=== PATIENT | female | born 1960 | race Caucasian/White ===

== ENCOUNTER 2019-06-30 07:29 | Day surgery (SDC) | payer MEDICARE, BC ==
--- NOTE | 2019-06-29 09:47 | HP ---
AMENDED REPORT NOW INCLUDES DESIGNATED COSIGNER - ESIGNED BEFORE ADJUSTMENTS PREOPERATIVE HISTORY AND PHYSICAL: DATE OF SURGERY/ADMISSION: 06/30/19 DATE OF OFFICE VISIT/ENCOUNTER: 06/25/19 ATTENDING SURGEON: Hanna Renee MD * (DICTATED BY NOHEMI KRISHNAN) PROCEDURE: Open reduction internal fixation, left wrist. HISTORY OF PRESENT ILLNESS: This is a 59-year-old female who was outside taking a walk on, I believe, 06/22/19, when she slipped and fell. She was on the sidewalk at the time and fell onto her left arm awkwardly. She saw her primary care physician who took x-rays. He placed her in a splint and referred her to Dr. Renee for further evaluation and treatment considerations. She complains of pain primarily at the wrist. She denies any numbness or tingling and does have some pain at the elbow as well. She has a history of a nondisplaced distal radius fracture on the same arm a few years ago, but fully healed from that. She denies any other injury from this recent fall. X-rays have showed a displaced fracture of the left distal radius. Dr. Renee is recommending surgical intervention for best outcome and the patient has consented to proceed. PAST MEDICAL HISTORY: 1. Borderline personality disorder. 2. Depression. 3. Hypothyroidism. 4. Some hearing loss since childhood. PAST SURGICAL HISTORY: 1. Uterine fibroids. 2. Oral surgery. CURRENT MEDICATIONS: 1. Aspirin 81 mg daily. 2. Levothyroxine sodium 175 mcg daily. 3. Prozac. 4. Wellbutrin SR. ALLERGIES: No known drug allergies. FAMILY HISTORY: Diabetes, heart disease, hypertension, stroke. SOCIAL HISTORY: The patient works at the [employer] in [place]. She denies tobacco use, recreational drug use, and does not drink alcohol. REVIEW OF SYSTEMS: Negative for general, cephalic, cardiovascular, respiratory , GI, , other musculoskeletal, integumentary, endocrine, neurologic, and hematologic symptoms. Infectious Disease: Negative for MRSA, hepatitis C, HIV. PHYSICAL EXAMINATION GENERAL: Well-developed, well-nourished 59-year-old female in no acute distress. VITAL SIGNS: Height 5 feet 4 inches, weight 160 pounds. Pulse rate 75, blood pressure 100/68. HEENT: Normocephalic, atraumatic. Pupils are equal, round, and reactive to light and accommodation. Extraocular movements are intact. Throat is clear. NECK: Supple. No palpable lymph nodes. PULMONARY: Lungs are clear to auscultation bilaterally. No wheezes, rales, or rhonchi. CARDIOVASCULAR: Regular rate and rhythm. S1, S2. No murmurs, rubs, or gallop. No edema. ABDOMEN: Positive bowel sounds, soft, nontender. MUSCULOSKELETAL: On exam of her left wrist, there is an obvious deformity. She has lot of swelling and ecchymosis in her hand. She can move her fingers, but cannot make a full fist. Elbow motion is little bit painful. She has tenderness at the distal radius. Skin is intact. Neurovascular function is intact. NEUROLOGIC: Alert and oriented x3. Cranial nerves II through XII are intact. Sensation is intact to light touch. IMAGING STUDIES: X-rays, AP, lateral, and oblique, of the left wrist show a displaced fracture of her distal radius, extra-articular. IMPRESSION: As above. PLAN: The patient is scheduled to undergo an open reduction internal fixation, left wrist, with Dr. Renee on 06/30/19. She will return to the office 10 days postop for followup and suture removal. A prescription for Sidman was e-scribed to the patient's pharmacy for postoperative pain management. NOHEMI KRISHNAN [id number]/ADOLFO #: [id number] [place]
[~2019-06-30 07:29] MED LIST: Buffered Lidocaine 1% SYRIN* 1 ML/SYRINGE INTRADERM ONE; Dexamethasone IV* 4 MG/ML 1 ML (4 MG) IV SLOW PU ONE; Famotidine IV* 10 MG/ML 2 ML (20 mg) IV ONE; Lactated Ringers 1000 ML Bag* 1,000 ML IV SCH
[2019-06-30] MEDS ORDERED: ceFAZolin 2 GM PREMIX in ORs 2 GM/50 ML BAG ONE (07:47)
[2019-06-30] MEDS ORDERED: Dexamethasone IV* 4 MG/ML 1 ML (4 MG) ONE (07:48)
[2019-06-30] MEDS ORDERED: Famotidine IV* 10 MG/ML 2 ML (20 mg) ONE (07:48)
[2019-06-30] MEDS ORDERED: Buffered Lidocaine 1% SYRIN* 1 ML/SYRINGE INTRADERM ONE (08:15)
[2019-06-30] MEDS ORDERED: Bupivacaine 0.5% SDV PF* 30ML VIAL ONE (09:03)
[2019-06-30] MEDS ORDERED: fentaNYL* 50 MCG/ML 5 ML VIAL (250 MCG VIAL) ONE (09:06)
[2019-06-30] MEDS ORDERED: Atracurium* 10 MG/ML 10 ML VIAL ONE (09:06)
[2019-06-30] MEDS ORDERED: Midazolam* 1 MG/ML 2 ML VIAL (2 MG) ONE (09:06)
[2019-06-30] MEDS ORDERED: Ondansetron INJ* 2 MG/ML VIAL IV PRN (09:46)
[2019-06-30] MEDS ORDERED: HYDROmorphone INJ1* 1 MG/ML SYRINGE IV PRN (09:46)
[2019-06-30] MEDS ORDERED: DiMENhydriNATE IV* 50 MG/ML VIAL IV PUSH PRN (09:46)
[2019-06-30] MEDS ORDERED: Naloxone* 0.4 MG/ML 1 ML VIAL IV PRN (09:46)
[2019-06-30] MEDS ORDERED: fentaNYL* 50 MCG/ML 2 ML VIAL (100 MCG VIAL) IV PRN (09:46)
[2019-06-30] MEDS ORDERED: oxyCODONE/Acetamin 5/325 MG* TAB PO PRN (09:46)
[2019-06-30] MEDS ORDERED: Neostigmine Methylsulfate* 3 MG/3 ML SYRINGE ONE (09:56)
[2019-06-30] MEDS ORDERED: Glycopyrrolate IV* 0.2 MG/ML 1 ML VIAL ONE (09:56)
[2019-06-30] MEDS ORDERED: oxyCODONE/Acetamin 5/325 MG* TAB ONE (10:49)
[2019-06-30 11:46] VITALS: BP 111/56
--- NOTE | 2019-06-30 23:35 | OP ---
DATE OF OPERATION: 06/30/19 [facility] DATE OF : 64 SURGEON: Hanna Renee MD DOVETAILER: NOHEMI Brownlee ANESTHESIA: General. PRE-OP DIAGNOSIS: Distal radius fracture on the left. POST-OP DIAGNOSIS: Distal radius fracture on the left. OPERATIVE PROCEDURE: Open reduction internal fixation of left distal radius. INDICATIONS: Veena is a 59-year-old woman who fell and injured her left wrist. X-ray shows a significantly displaced left distal radius fracture. She presents for ORIF of the distal radius on the left side. ESTIMATED BLOOD LOSS: Zero. TOURNIQUET TIME: About 35 minutes. DESCRIPTION OF PROCEDURE: The patient was brought to the operating room, was given a general anesthetic and placed in the supine position on the operating room with a tourniquet around her left upper arm. The skin of her left upper extremity was prepped and draped in the usual sterile fashion. The upper extremity was exsanguinated and the tourniquet elevated to 250 mmHg. A longitudinal incision was made along the flexor carpi radialis tendon and we dissected sharply through the superficial and deep tendon sheath. The FPL muscle and tendon were then retracted ulnarly. The pronator quadratus was incised and then subperiosteally dissected off the distal radius. The fracture fragments were reduced with a Willards elevator and then a 3-hole plate from the [employer]. The distal radius was secured with 4 distal locking screws and 3 proximal screws. The position of the hardware and fracture fragments was checked on the C-arm in the AP and lateral views and found to be satisfactory. The wound was irrigated. The pronator quadratus was repaired over the plate with 2-0 Vicryl suture. The FCR tendon sheath was repaired with 2-0 Vicryl suture. The skin edges were reapproximated with 4-0 nylon suture. The wound was dressed with Xeroform, 4x4, Webril, and a volar splint placed in a little bit of flexion. The patient tolerated the procedure well and was brought to the recovery room in good condition. [id number]/CPS #: [id number] MTDD
== END 2019-06-30 12:05 | disposition home or self-care (01) ==
LOC: OREAST 07:29
PROVIDERS: ATTEND Orthopaedic Surgery
DX: S52.552A Other extraarticular fracture of lower end of left radius, initial encounter for closed fracture (principal); W01.0XXA Fall on same level from slipping, tripping and stumbling without subsequent striking against object, initial encounter; Y93.01 Activity, walking, marching and hiking; Y92.480 Sidewalk as the place of occurrence of the external cause; E03.9 Hypothyroidism, unspecified; F60.3 Borderline personality disorder; F32.9 Major depressive disorder, single episode, unspecified
CPT/HCPCS: 76000; A9270-GY; C1713; C1776; J0690; J1100; J2250; J2710; J3010; J3490